=== PATIENT | female | born 1960 ===

== ENCOUNTER 2020-03-15 10:00 | Day surgery (SDC) | payer OTHER ==
[2020-03-15] MEDS ORDERED: TOPROL XL25 M1 PO (11:13)
[2020-03-15] MEDS ORDERED: LEVOTHYROXINE25 MCG PO (11:13)
[2020-03-15] MEDS ORDERED: PROAIR HFA8.5 GM IH (11:14)
[2020-03-15] MEDS ORDERED: SINGULAIR10 MG PO (11:15)
[2020-03-15] MEDS ORDERED: ATORVASTATIN CA20 MG PO (11:15)
[2020-03-15] MEDS ORDERED: FLOVENT DISKU100 MCG IH (11:15)
[2020-03-15] MEDS ORDERED: ASPIR 8181 MG PO (11:15)
== END 2020-03-15 22:50 | disposition home or self-care (01) ==
LOC: CIR.AMB 10:00
PROVIDERS: ATTEND Obstetrics & Gynecology Obstetrics
DX: N93.8 Other specified abnormal uterine and vaginal bleeding (principal); Z20.828 Contact with and (suspected) exposure to other viral communicable diseases